=== PATIENT | male | born 1990 | race African-American/Black ===

== ENCOUNTER 2020-10-18 10:56 | Outpatient (CLI) | payer MEDICARE, MEDICAID, SELFPAY ==
--- NOTE | 2020-11-03 21:57 | WPDSLEEPSTUD ---
Sleep Study Date of Study: 10/18/20 Ordering Provider: Karen Acosta, SENIOR INSTRUCTIONAL DESIGNER Interpreting Physician: Awa Barrios MD Sleep Study Type: Split Polysomnogram Height: 1.85 m Weight: 114.759 kg Body Mass Index: 33.3 Neck Circumference (inches): 20 [place]: 11 Reason for Sleep Study Known obstructive sleep apnea, has tried CPAP in the past, now for re-testing Sleep History Dat Forde is a 29 year old man who resides in a retirement. He has hypertension, schizophrenia, obstructive sleep apnea on CPAP in the past, and because he has not wanted to use it, he has perhaps broken a CPAP machine. He has difficulty falling asleep and staying asleep. He wakes during the night. He has difficulty waking in the morning. He constantly wakes at night feeling short of breath. He rarely wakes at night with heartburn belching or coughing. He constantly snores loudly, always has trouble sleeping with a cold, and always gasps for breath at night, always sweats excessively at night. He frequently falls asleep in the day, frequently involuntarily, however does not drive therefore he does not fall asleep while driving. He does not have loss of muscle tone with strong emotion. He occasionally has daytime difficulties due to excessive sleepiness. He does not feel paralyzed on waking or falling asleep. He is not afraid to go to sleep. He does not have nightmares, does not recall his dreams, occasionally feels sad or depressed, and occasionally has anxiety. He does not have muscular tension, and does not notice parts of his body jerking. He does not have crawling or achy feelings in his legs at night, does not have leg pain at night, does not have morning jaw pain. He does not have pain in the day, does not wake up with pain in the night, does not wake up feeling stiff, with sore or achy muscles or with joint or spine pain. He takes Trazodone 100 mg at bedtime. Normal bedtime is between 10:00 p.m. and 11:00 p.m. waking up constantly throughout the night. While awake he will talk to himself, watch television and listen to music. Sometimes he stays awake throughout the night. He wakes the morning at 6:00 a.m., sometimes as early as 4:00 am. On the weekends, he may stay awake until 12:00 midnight or 1:00 a.m., and wake at 7:00 a.m. He may take a nap on julio weekend. A short nap is not refreshing. He is drowsy on waking. Habits: never smoker. Caffeine: one per day. No alcohol or recreational drugs. [facility] Past Medical History Medical History (Updated 11/06/20 @ 18:45 by Awa Barrios MD) Hypertension Non-alcoholic fatty liver disease Non-insulin dependent diabetes mellitus Obstructive sleep apnea Schizophrenia Surgical History Surgical History (Updated 11/03/20 @ 22:50 by Awa Barrios MD) History of ankle surgery Social History Social History (Updated 11/03/20 @ 22:51 by Awa Barrios MD) Smoking status: Never smoker Alcohol intake: never Substance use: never Living arrangements: retirement Additional living arrangements comments: Lives with 5 other residents, each has his own room. Medications Medications: aripiprazole 20 mg daily lamotrigine 200 mg b.i.d. fluticasone propionate 50 mcg per spray 2 sprays each nostril daily glipizide 10 mg before meal daily nystatin 100,000 units; apply twice a day to the affected area metformin 850 mg b.i.d. with meals loratadine 10 mg a day lisinopril 5 mg a day this a code 0 5 mg 2 capsules daily p.r.n. constipation ziprasidone 80 mg b.i.d. with food vitamin D2 1250 mcg every week diphenhydramine 25 mg Q 6 hours p.r.n. MiraLax 17 g daily with 8 oz of water p.r.n. constipation Sleep Procedure This test was performed using the [employer] multiple channel system including EOG, EEG, submental EMG, EKG, nasal and oral airflow using thermistors and nasal pressure sensors, chest and abdominal belts for body position data, and pulse oximetry. Video monitoring was also perfor
[2020-11-06 17:59] VITALS: BMI 33.3
== END 2020-10-19 06:43 | disposition home or self-care (01) ==
LOC: ANHCSM 10:59
PROVIDERS: Visit Provider Nurse Practitioner
DX: G47.30 Sleep apnea, unspecified (principal); G47.33 Obstructive sleep apnea (adult) (pediatric)
CPT/HCPCS: 95811

== ENCOUNTER 2021-04-19 20:47 | Day surgery (SDC) | payer MEDICARE, MEDICAID, SELFPAY ==
--- NOTE | ~2021-04-19 | XR_ITS ---
EXAMINATION: XR abdomen/kub 1V INDICATION: Ingested foreign body, swallowed two AAA batteries TECHNIQUE: Supine views of the abdomen were obtained on 2 radiographs. COMPARISON: None FINDINGS: There are two radiopaque foreign bodies projecting in the stomach with an appearance compat ible with ingested batteries. The bowel gas pattern is normal. The visualized lung bases are clear. A moderate volume of colonic stool is present. IMPRESSION: 1. Two radiopaque foreign bodies projecting in the stomach consistent with ingested batteries. Reviewed, dictated and finalized at location F. GER CARE IMPRESSION: 1. Two radiopaque foreign bodies projecting in the stomach consistent with magdi sted batteries.
--- NOTE | ~2021-04-19 | XR_ITS ---
EXAMINATION: XR abdomen/kub 1V DATE: 04/20/2021 06:54 INDICATION: Foreign body. TECHNIQUE: A supine view of the abdomen on 2 radiographs was obtained. COMPARISON: Abdomen radiographs 04/19/2021 FINDINGS: There are no dilated loops of bowel. There are 2 radiopaque foreign bodies in left abdomen in the shape of batteries measuring 55 x 13 mm. IMPRESSION: 1. Two radiopaque foreign bodies in left abdomen in the shape of batteries. One is likely in descendi ng colon. The other is likely in small bowel. Reviewed, dictated and finalized at location B. ECRAFT TEACHER IMPRESSION: 1. Two radiopaque foreign bodies in left abdomen in the shape of batteries. One is likely in descending colon. The other is likely in small bowel.
[2021-04-19 21:02] VITALS: BP 136/75; PULSE 88; RESP 18; TEMP 36.5; O2SAT 100
[2021-04-19 21:52] LABS: Basophils Percent Auto 0.2 % (0.2-1.2); Eosinophils Percent Auto 0.2 % (0-4.4); Hematocrit 41.9 % (42.0-52.0); Hemoglobin 13.9 g/dL (14.0-18.0); Immature Granulocyte Absolute 0.01 K/mm3 (0.00-0.031); Immature Granulocyte Percent A 0.2 % (0-0.5); Lymphocytes Absolute Auto 1.96 K/mm3 (0.9-3.2); Lymphocytes Percent Auto 34.5 % (18.3-44.2); Mean Corpuscular HGB Conc 33.2 g/dl (32-36); Mean Corpuscular Hemoglobin 31.4 pg (26-34); Mean Corpuscular Volume 94.8 fl (80-100); Mean Platelet Volume 9.9 fl (7.4-10.4); Monocytes Absolute Auto 0.5 K/mm3 (0.1-0.6); Monocytes Percent Auto 9.5 % (2.6-8.5); Neutrophils Absolute Auto 3.2 K/mm3 (1.3-6.7); Neutrophils Percent Auto 55.4 % (45.5-73.1); Platelet Count Result 259 k/mm3 (150-375); Red Blood Count 4.42 M/mm3 (4.6-6.20); Red Cell Distribution Width 12.4 % (11.5-14.5); White Blood Count 5.7 K/mm3 (4.5-10.0)
[2021-04-19 22:11] LABS: Ethanol < 10 mg/dL (<10)
[2021-04-19 22:12] LABS: Alanine Aminotransferase 29 U/L (4-50); Albumin Level 4.5 g/dL (3.5-5.1); Alkaline Phosphatase 73 U/L (38-126); Anion Gap 10 mmol/L (8-16); Aspartate Amino Transferase 35 U/L (17-59); Bilirubin,Total 0.5 mg/dL (0.2-1.3); Blood Urea Nitrogen 14 mg/dL (9-20); Calcium 9.8 mg/dL (8.4-10.2); Carbon Dioxide 28 mmol/L (22-30); Chloride 98 mmol/L (98-107); Estimated CRCL calculation 124 ml/min; Estimated Glomerular Filt Rate > 60; Glucose 101 mg/dL (65-110); Potassium 3.7 mmol/L (3.4-5.0); Sodium 136 mmol/L (137-145)
--- NOTE | 2021-04-19 22:21 | ED.PSYCH ---
HPI - Psych General Chief Complaint: Psychiatric Symptoms <Cristo Day MD - Last Filed: 04/20/21 01:41> Stated Complaint: ingestion <Cristo Day MD - Last Filed: 04/20/21 01:41> Time Seen by Provider: 04/19/21 21:42 <Cristo Day MD - Last Filed: 04/20/21 01:41> Source: patient <Cristo Day MD - Last Filed: 04/20/21 01:41> Mode of arrival: ambulatory <Cristo Day MD - Last Filed: 04/20/21 01:41> Limitations: no limitations <Cristo Day MD - Last Filed: 04/20/21 01:41> History of Present Illness HPI Narrative: 30-year-old with a history of schizophrenia, hypertension, diabetes here with the complaints of being upset at home. He states that he swallowed 2 AA batteries about 1 hour ago. He presently denies any nausea, vomiting or abdominal pain. Also feels suicidal. <Cristo Day MD - Last Filed: 04/20/21 01:41> MD complaint: suicidal ideation <Cristo Day MD - Last Filed: 04/20/21 01:41> Onset (ago): day(s) (1) <Cristo Day MD - Last Filed: 04/20/21 01:41> Duration: constant <Cristo Day MD - Last Filed: 04/20/21 01:41> Relieving factors: none <Cristo Day MD - Last Filed: 04/20/21 01:41> Exacerbating factors: none <Cristo Day MD - Last Filed: 04/20/21 01:41> Associated psychiatric symptoms: suicidal ideation <Cirsto Day MD - Last Filed: 04/20/21 01:41> Associated symptoms: denies other symptoms <Cristo Day MD - Last Filed: 04/20/21 01:41> Related Data Home Medications: Home Medications Medication Instructions Recorded Confirmed fluticasone propionate 50 1 spray INTRANASAL DAILY 01/16/21 04/20/21 mcg/actuation nasal spray,suspension lamotrigine 200 mg tablet 200 mg PO BID 01/16/21 04/20/21 lisinopril 5 mg tablet 5 mg PO DAILY 01/16/21 04/20/21 loratadine 10 mg capsule 10 mg PO DAILY 01/16/21 04/20/21 metformin 850 mg tablet 850 mg PO BID 01/16/21 04/20/21 nystatin 100,000 unit/gram topical 1 applic TOPICAL DAILY 01/16/21 04/20/21 cream trazodone 150 mg tablet 150 mg PO QHS PRN 01/16/21 04/20/21 aripiprazole 20 mg PO DAILY 04/20/21 04/20/21 <Cristo Day MD - Last Filed: 04/20/21 01:41> Allergies/Adverse Reactions: Allergies Allergy/AdvReac Type Severity Reaction Status Date / Time No Known Allergies Allergy Verified 04/19/21 23:16 <Cristo Day MD - Last Filed: 04/20/21 01:41> Review of Systems Review of Systems: All systems reviewed & are unremarkable except as noted in HPI and below <Cristo Day MD - Last Filed: 04/20/21 01:41> Constitutional: Constitutional: Reports no additional constitutional complaints <Cristo Day MD - Last Filed: 04/20/21 01:41> Eyes: Eyes: Reports no additional eye complaints <Cristo Day MD - Last Filed: 04/20/21 01:41> Cardiovascular: Cardiovascular: Reports no additional cardiovascular complaints <Cristo Day MD - Last Filed: 04/20/21 01:41> Respiratory: Respiratory: Reports no additional respiratory complaints <Cristo Day MD - Last Filed: 04/20/21 01:41> Gastrointestinal: Gastrointestinal: Reports as per HPI <Cristo Day MD - Last Filed: 04/20/21 01:41> Musculoskeletal: Musculoskeletal: Reports no additional musculoskeletal complaints <Cristo Day MD - Last Filed: 04/20/21 01:41> Integumentary/Breasts: Skin/Breast: Reports system reviewed and no additional complaints, except as docu <Cristo Day MD - Last Filed: 04/20/21 01:41> Neurologic: Reports system reviewed and no additional complaints, except as documented <Cristo Day MD - Last Filed: 04/20/21 01:41> [facility] Past Medical History Medical History: Medical History Diabetes mellitus Hypertension Non-alcoholic fatty liver disease Non-insulin dependent diabetes mellitus Obstructive sleep apnea Schizophrenia <Cristo Day MD - Last
--- NOTE | 2021-04-19 22:32 | WPDGICN ---
Assessment and Plan Assessment and plan (1) Foreign body in stomach: Qualifiers: Encounter type: initial encounter Qualified Code(s): T18.2XXA - Foreign body in stomach, initial encounter Code(s): T18.2XXA - Foreign body in stomach, initial encounter Status: Acute Assessment and Plan: He ingested 2 batteries. Denies chest or abdominal pain. The plan is to remove them via EGD with possible biopsy or dilatation or cautery. (2) Suicidal ideation: Code(s): R45.851 - Suicidal ideations Status: Acute Assessment and Plan: He states he swallowed batteries trying to harm himself, now regrets it. GI Consult Note Consult date/time: 04/19/21 22:32 HPI: Dat Forde is a 30 year old male who suffers from mental disability and schizophrenia, lives in a nursing home. This evening, he apparently swallowed 2 batteries. Xray confirms that batteries are in the stomach. Review of Systems Review of Systems: All systems reviewed & are unremarkable except as noted in HPI and below PMFSH Past Medical History Medical History Diabetes mellitus Hypertension Non-alcoholic fatty liver disease Non-insulin dependent diabetes mellitus Obstructive sleep apnea Schizophrenia Surgical History Surgical History History of ankle surgery Social History Social History Smoking status: Never smoker Alcohol intake: never Substance use: never Additional living arrangements comments: Lives with 5 other residents, each has his own room. Meds Home Medications and Allergies Home Medications Medication Instructions Recorded Confirmed Type acetaminophen 325 mg capsule 325 mg PO Q6H PRN 01/16/21 01/19/21 History aluminum-mag hydroxide-simethicone 30 ml PO ONCE ml 01/16/21 01/19/21 History 200 mg-200 mg-20 mg/5 mL oral susp bisacodyl 5 mg tablet,delayed 5 mg PO QHS 01/16/21 01/19/21 History release diphenhydramine HCl 25 mg capsule 25 mg PO QHS 01/16/21 01/19/21 History fluticasone propionate 50 1 spray INTRANASAL DAILY 01/16/21 01/19/21 History mcg/actuation nasal spray,suspension glipizide 10 mg tablet, extended 10 mg PO DAILY 01/16/21 01/19/21 History release 24 hr lamotrigine 200 mg tablet 200 mg PO BID 01/16/21 01/19/21 History lisinopril 5 mg tablet 5 mg PO DAILY 01/16/21 01/19/21 History loratadine 10 mg capsule 10 mg PO DAILY 01/16/21 01/19/21 History metformin 850 mg tablet 850 mg PO BID 01/16/21 01/19/21 History nystatin 100,000 unit/gram topical 1 applic TOPICAL DAILY 01/16/21 01/19/21 History cream ondansetron 4 mg disintegrating 4 mg PO Q8H 01/16/21 01/19/21 History tablet polyethylene glycol 3350 17 gram 17 g PO DAILY 01/16/21 01/19/21 History oral powder packet trazodone 150 mg tablet 150 mg PO QHS PRN 01/16/21 01/19/21 History ziprasidone HCl 80 mg capsule 80 mg PO BID 01/16/21 01/19/21 History vitamin E 200 unit capsule 800 unit PO DAILY 30 Days #120 cap 01/19/21 01/19/21 Rx Allergies Allergy/AdvReac Type Severity Reaction Status Date / Time No Known Allergies Allergy Verified 04/19/21 23:16 Vital Signs Vital Signs - 24 hr 04/19/21 21:02 Temperature 36.5 C Pulse Rate 88 Respiratory Rate 18 Blood Pressure 136/75 Pulse Oximetry 100 Exam Const: General: alert Orientation/consciousness: patient oriented x3 Resp: Auscultation: clear to auscultation bilaterally Cardio: Rhythm: regular rhythm GI: GI Palp: Yes Soft to palpation and No Tenderness to palpation present (GI) Neuro: General: patient oriented x3 Results Labs CBC & Chem 7: 04/19/21 21:41 04/19/21 21:41 Labs: Short CBC 04/19/21 Range/Units 21:41 WBC 5.7 (4.5-10.0) K/mm3 Hgb 13.9 L (14.0-18.0) g/dL Hct 41.9 L (42.0-52.0) % Plt Count 259 (150-375) k/
--- NOTE | 2021-04-19 23:07 | SUR.PHASEII ---
Pt is a word of the state, spoke with Josselin Pepper, Guardian/Librarian Helper of the pt, and obtained consent for the EGD. Susan CHAPMAN in ED confirmed.
--- NOTE | 2021-04-19 23:12 | PC.NURSE ---
Zandra RN given verbal report. RNs spoke with Josselin Pepper [facility] on-call to get consent for upper endoscopy with foreign body removal. Pt taken to GI lab
[2021-04-19 23:19] VITALS: BP 122/86; PULSE 75; RESP 18; O2SAT 100
[2021-04-19] MEDS: LACTATED RINGERS 1,000 ML 150 ML IV CONT (23:19)
--- NOTE | 2021-04-19 23:20 | WPDANESEPPF ---
Anes - Initial Pre Proc Eval Procedure: Operation Date: 04/19/21 22:50 Proposed Procedures p Esophagogastroduodenoscopy - Joel Hunter MD Date/Time: 04/19/21 23:20 Surgeon: Joel Hunter MD Pre Op Diagnosis: ingestion Patient Data Age: 30 Gender: M Height: 1.85 m Weight: 108 kg Last Vital Signs Temp 36.5 C 04/19/21 21:02 Pulse 88 04/19/21 21:02 Resp 18 04/19/21 21:02 BP 136/75 04/19/21 21:02 Pulse Ox 100 04/19/21 21:02 Allergies Allergy/AdvReac Type Severity Reaction Status Date / Time No Known Allergies Allergy Verified 04/19/21 23:16 Home Medications Medication Instructions Recorded Confirmed Type acetaminophen 325 mg capsule 325 mg PO Q6H PRN 01/16/21 01/19/21 History aluminum-mag hydroxide-simethicone 30 ml PO ONCE ml 01/16/21 01/19/21 History 200 mg-200 mg-20 mg/5 mL oral susp bisacodyl 5 mg tablet,delayed 5 mg PO QHS 01/16/21 01/19/21 History release diphenhydramine HCl 25 mg capsule 25 mg PO QHS 01/16/21 01/19/21 History fluticasone propionate 50 1 spray INTRANASAL DAILY 01/16/21 01/19/21 History mcg/actuation nasal spray,suspension glipizide 10 mg tablet, extended 10 mg PO DAILY 01/16/21 01/19/21 History release 24 hr lamotrigine 200 mg tablet 200 mg PO BID 01/16/21 01/19/21 History lisinopril 5 mg tablet 5 mg PO DAILY 01/16/21 01/19/21 History loratadine 10 mg capsule 10 mg PO DAILY 01/16/21 01/19/21 History metformin 850 mg tablet 850 mg PO BID 01/16/21 01/19/21 History nystatin 100,000 unit/gram topical 1 applic TOPICAL DAILY 01/16/21 01/19/21 History cream ondansetron 4 mg disintegrating 4 mg PO Q8H 01/16/21 01/19/21 History tablet polyethylene glycol 3350 17 gram 17 g PO DAILY 10/11/21 10/14/21 History oral powder packet trazodone 150 mg tablet 150 mg PO QHS PRN 01/16/21 01/19/21 History ziprasidone HCl 80 mg capsule 80 mg PO BID 01/16/21 01/19/21 History vitamin E 200 unit capsule 800 unit PO DAILY 30 Days #120 cap 01/19/21 01/19/21 Rx Laboratory Tests 04/19/21 04/19/21 04/19/21 21:41 21:41 21:41 WBC 5.7 K/mm3 K/mm3 (4.5-10.0) RBC 4.42 M/mm3 L M/mm3 (4.6-6.20) Hgb 13.9 g/dL L g/dL (14.0-18.0) Hct 41.9 % L % (42.0-52.0) MCV 94.8 fl fl (80-100) MCH 31.4 pg pg (26-34) MCHC 33.2 g/dl g/dl (32-36) RDW 12.4 % % (11.5-14.5) Plt Count 259 k/mm3 k/mm3 (150-375) MPV 9.9 fl fl (7.4-10.4) Immature Gran % (Auto) 0.2 % % (0-0.5) Neut % (Auto) 55.4 % % (45.5-73.1) Lymph % (Auto) 34.5 % % (18.3-44.2) [place] % (Auto) 9.5 % H % (2.6-8.5) Eos % (Auto) 0.2 % % (0-4.4) Baso % (Auto) 0.2 % % (0.2-1.2) Lymph # (Auto) 1.96 K/mm3 K/mm3 (0.9-3.2) [place] # (Auto) 0.5 K/mm3 K/mm3 (0.1-0.6) Eos # (Auto) 0.0 K/mm3 K/mm3 (0-0.3) Baso # (Auto) 0.0 K/mm3 K/mm3 (0.0-0.1) Abs Immat Gran (auto) 0.01 K/mm3 K/mm3 (0.00-0.031) Absolute Neuts (auto) 3.2 K/mm3 K/mm3 (1.3-6.7) Absolute Nucleated RBC 0.0 K/mm3 K/mm3 (0.0-0.012) Nucleated RBC % 0.0 % % (0.0-0.2) Sodium 136 mmol/L L mmol/L (137-145) Potassium 3.7 mmol/L mmol/L (3.4-5.0) Chloride 98 mmol/L mmol/L (98-107) Carbon Dioxide 28 mmol/L mmol/L (22-30) Anion Gap 10 mmol/L mmol/L (8-16) BUN 14 mg/dL mg/dL (9-20) Creatinine 1.00 mg/dL mg/dL (0.7-1.3) Estim Creat Clear Calc 124 ml/min ml/min Estimated GFR > 60 (59 - ) Glucose 101 mg/dL mg/dL (65-110) Calcium 9.8 mg/dL mg/dL (8.4-10.2) Total Bilirubin 0.5 mg/dL mg/dL (0.2-1.3) AST 35 U/L U/L (17-59) ALT 29 U/L U/L (4-50) Alkaline Phosphatase 73 U/L U/L (38-126) Total Protein 7.0 g/dL g/dL (6.3-8.2) A
[2021-04-19 23:30] VITALS: BP 113/81; PULSE 89; RESP 27; O2SAT 98
--- NOTE | 2021-04-19 23:33 | SUR.PHASEII ---
Pt being pre oped and post oped in endoscopy room 3.
[2021-04-19 23:40] VITALS: BP 97/61; PULSE 76; RESP 23; O2SAT 100
[2021-04-19 23:50] VITALS: BP 101/69; PULSE 79; RESP 20; O2SAT 98
[2021-04-19 23:53] LABS: Amphetamine Screen Urine Negative (Negative); Barbiturate Screen Urine Negative (Negative); Benzodiazepines Screen Urine Negative (Negative); Cannabinoid Screen Urine Negative (Negative); Cocaine Screen Urine Negative (Negative); Methadone Screen Urine Negative (Negative); Opiate Screen Urine Negative (Negative); Phencyclidine Screen Urine Negative (Negative)
--- NOTE | 2021-04-19 23:58 | PC.NURSE ---
Telephone report from Zandra CHAPMAN, GI unable to get objects out of ABD. will keep overnight for another attempt in the AM
--- NOTE | 2021-04-19 23:59 | SUR.PHASEII ---
Pt returning back to the ED.
[2021-04-20 02:50] LABS: Add Urine Microscopic? YES; Appearance Urine Clear (Clear); Bilirubin Urine Negative (Negative); Blood Urine Negative (Negative); Calcium Oxalate Crystals Urine Present /hpf; Color Urine Yellow (Yellow); Glucose Urine UA Negative (Negative); Ketones Urine Negative (Negative); Leukocyte Esterase Ur Negative LEU/UL (Negative); Mucus Urine Rare /lpf; Nitrate Urine Negative (Negative); Protein Urine Negative (Negative); Specific Grav Ur 1.024 (1.001-1.035); Squamous Epithelial Cell Urine Rare /hpf (Few); WBC Urine 0-3 /hpf
--- NOTE | 2021-04-20 07:24 | PC.NURSE ---
Assumed care of pt. at this time. Report from ADELA Davis
[2021-04-20 07:25] VITALS: BP 120/82; PULSE 82; RESP 14; TEMP 36.7; O2SAT 97
--- NOTE | 2021-04-20 07:45 | PC.NURSE ---
Report to GI spray painter. States she will be down to get pt. in approx. on hour.
--- NOTE | 2021-04-20 08:49 | PC.NURSE ---
Sury is pt. legal guardian m-f [phone]. Radha pt. nurse at [facility]f [phone]. Elsa, business area manager [phone]. Elsa states she would provide transportation for pt. reports she needs four hours notice.
[2021-04-20 09:01] LABS: Glucose Point of Care 75 mg/dl (65-105)
--- NOTE | 2021-04-20 11:00 | PC.NURSE ---
Crisis states pt. is safety contracted and safe to return home.
--- NOTE | 2021-04-20 11:43 | PC.NURSE ---
Per ERP pt. is to let batteries to pass naturally through stool.
--- NOTE | 2021-04-20 11:47 | PC.NURSE ---
Report to Radha from [facility] facility. Pt. is to continue normal diet and stools are supposed to be monitored until batteries are passed. facility has also been instructed the follow up w/ Dr. Hunter in the next few days.
--- NOTE | 2021-04-20 11:48 | PC.NURSE ---
Radha states she will contact Elsa for pt. transportation and will call RN back with information. [facility] will not have staff until after 1400.
[2021-04-20 11:51] VITALS: BP 135/75; PULSE 82; RESP 16; O2SAT 100
[2021-04-20 11:53] LABS: Glucose Point of Care 127 mg/dl (65-105)
--- NOTE | 2021-04-20 12:10 | PC.NURSE ---
ADELA Garcia called this RN to update pt. states they have appointments later today and states they will work to pick him up eventually.
[2021-04-20 16:20] VITALS: BP 133/88; PULSE 80; RESP 19; O2SAT 99
== END 2021-04-19 22:44 ==
LOC: ANHED 22:06 → ANHENDO 22:48
PROVIDERS: Emergency Medicine; Emergency Provider Emergency Medicine; PCP Family Medicine; Visit Provider Internal Medicine Gastroenterology
PROC: 0DJ08ZZ Inspection of Upper Intestinal Tract, Via Natural or Artificial Opening Endoscopic (ICD-10-PCS; CPT 43235; principal; 2021-04-19 22:50)
DX: T18.2XXA Foreign body in stomach, initial encounter (principal); R45.851 Suicidal ideations; K31.84 Gastroparesis; F20.9 Schizophrenia, unspecified; I10 Essential (primary) hypertension; E11.9 Type 2 diabetes mellitus without complications; Z79.84 Long term (current) use of oral hypoglycemic drugs; K76.0 Fatty (change of) liver, not elsewhere classified; G47.30 Sleep apnea, unspecified; E66.9 Obesity, unspecified; Z68.31 Body mass index [BMI] 31.0-31.9, adult; Z79.899 Other long term (current) drug therapy
CPT/HCPCS: 43235; 36415; 74018; 80053; 80307; 81001; 82948; 84443; 85025; 99285; J2001; J2704; J7120

== ENCOUNTER 2021-04-25 15:31 | Outpatient (CLI) | payer MEDICARE, MEDICAID, SELFPAY ==
--- NOTE | ~2021-04-25 | XR_ITS ---
EXAMINATION: XR abdomen/kub 1V DATE: 04/25/2021 15:50 INDICATION: Foreign body. TECHNIQUE: A supine view of the abdomen on 2 radiographs was obtained. COMPARISON: Abdomen radiographs 04/20/2021, 04/19/2021 FINDINGS: There are no dilated loops of bowel. There are two battery-shaped foreign bodies overlying the sigmoid colon. IMPRESSION: 1. Two battery-shaped foreign bodies overlying the sigmoid colon. Reviewed, dictated and finalized at location A. WORK FEEDER
== END 2021-04-25 15:32 | disposition home or self-care (01) ==
PROVIDERS: PCP Family Medicine; Visit Provider Internal Medicine Gastroenterology
DX: T18.2XXA Foreign body in stomach, initial encounter (principal)
CPT/HCPCS: 74018

== ENCOUNTER 2021-04-28 02:21 | Day surgery (SDC) | payer MEDICARE, MEDICAID, SELFPAY ==
[2021-04-26 15:09] VITALS: BMI 34.0
--- NOTE | 2021-04-27 14:07 | WPDANESEPPF ---
Anes - Initial Pre Proc Eval Procedure: Operation Date: 04/28/21 10:00 Proposed Procedures p Colonoscopy - Audi Shaffer MD Date/Time: 04/27/21 14:07 Surgeon: Audi Shaffer MD Pre Op Diagnosis: removal of foreign body Patient Data Age: 30 Gender: M Height: 1.85 m Weight: 117 kg Allergies Allergy/AdvReac Type Severity Reaction Status Date / Time No Known Allergies Allergy Verified 04/28/21 09:21 Home Medications Medication Instructions Recorded Confirmed Type fluticasone propionate 50 1 spray INTRANASAL DAILY 01/16/21 04/28/21 History mcg/actuation nasal spray,suspension lamotrigine 200 mg tablet 200 mg PO BID 01/16/21 04/28/21 History lisinopril 5 mg tablet 5 mg PO DAILY 01/16/21 04/28/21 History loratadine 10 mg capsule 10 mg PO DAILY 01/16/21 04/28/21 History metformin 850 mg tablet 850 mg PO BID 01/16/21 04/28/21 History nystatin 100,000 unit/gram topical 1 applic TOPICAL DAILY 01/16/21 04/28/21 History cream trazodone 150 mg tablet 150 mg PO QHS PRN 01/16/21 04/28/21 History vitamin E 200 unit capsule 800 unit PO DAILY 30 Days #120 cap 01/19/21 04/28/21 Rx aripiprazole 20 mg PO DAILY 04/20/21 04/28/21 History Patient hx anesthesia problems: none Family hx anesthesia problems: none Results Review: All pre-operative results and documents have been reviewed as part of the pre-operative evaluation. [facility] Past Medical History Medical History Diabetes mellitus Hypertension Non-alcoholic fatty liver disease Non-insulin dependent diabetes mellitus Obstructive sleep apnea Schizophrenia Surgical History Surgical History History of ankle surgery Social History Social History Smoking status: Never smoker Alcohol intake: never Substance use: never Substance use type: does not use Living arrangements: assisted living Additional living arrangements comments: Lives with 5 other residents, each has his own room. Spiritual care concerns: No Anes - Eval Final PreProcedure Day of Procedure 04/27/21 14:07 Patient weight: obese Heart: regular rate and rhythm Lungs: clear to auscultation and normal air movement Airway: Mallampati scale class II Neurological: alert and oriented Last oral intake: >/= 8 hours ASA classification: III Emergent: no Anesthetic plan: proceed Anesthesia type and monitoring: general GIVS and standard monitoring Results Review: All pre-operative results and documents have been reviewed as part of the pre-operative evaluation. Informed Consent: The patient's anesthetic plan and its attendant risks and benefits were discussed with the patient/family/POA. Questions were solicited and answers provided to the satisfaction of the patient/family/POA.
--- NOTE | ~2021-04-28 | XR_ITS ---
XR abdomen/kub 1V DATE: 04/28/2021 11:03 INDICATION: Ingestion of batteries TECHNIQUE: 3 AP supine views COMPARISON: 04/25/2021, 04/20/2021, 04/19/2021 KUB examinations FINDINGS: There are 2 radiopaque foreign bodies consistent with recently or early ingested batteries are no longer evident, having been passed per rectum presumably. No bowel obstruction. No visceromegaly. No abnormal calcification. IMPRESSION: Interval passage of 2 batteries since 04/25/2021; the periventricular no longer identified Reviewed, dictated and finalized at Location A. Reviewed, dictated and finalized at location A. UITER ACCOUNT MANAGER IMPRESSION: Interval passage of 2 batteries since 04/25/2021; the periventricula r no longer identified
--- NOTE | 2021-04-28 07:17 | SUR.PREOP ---
Elsa the maintenance worker house trailer called and stated that the staff at the assisted living watched him drink all of his prep and Dat has not had a bowel movement. I spoke with Dr Fink and states no new orders and okay for the patient to still come in for the procedure.
[2021-04-28 09:24] VITALS: BP 134/76; PULSE 82; RESP 20; TEMP 36.3; O2SAT 100; BMI 33.7
[2021-04-28] MEDS: LACTATED RINGERS 1,000 ML 150 ML IV CONT (09:28)
[2021-04-28 09:43] LABS: Glucose Point of Care 70 mg/dl (65-105)
--- NOTE | 2021-04-28 09:54 | WPDHPUPDATE1 ---
History and Physical Update Update Date/Time: 04/28/21 09:54 History and Physical has been reviewed, including an updated exam of the patient. There are NO changes in the patient's condition. Risks, benefits, and alternatives have been discussed and questions answered. Patient agrees to proceed with procedure.
[2021-04-28 10:34] VITALS: BP 93/54; PULSE 72; RESP 15; O2SAT 97
[2021-04-28 10:44] VITALS: BP 100/63; PULSE 63; RESP 15; O2SAT 99
[2021-04-28 10:54] VITALS: BP 113/77; PULSE 61; RESP 18; O2SAT 99
--- NOTE | 2021-04-28 10:58 | SUR.PHASEII ---
Pt transferred to [facility] at 1056.
--- NOTE | 2021-04-28 11:18 | SUR.PHASEII ---
Patient cleared for discharge per Dr Peace. No further instruction given.
== END 2021-04-28 11:15 | disposition home or self-care (01) ==
PROVIDERS: PCP Family Medicine; Visit Provider Internal Medicine Gastroenterology
PROC: 0DJD8ZZ Inspection of Lower Intestinal Tract, Via Natural or Artificial Opening Endoscopic (ICD-10-PCS; CPT 45378; principal; 2021-04-28 10:00)
DX: T18.4XXA Foreign body in colon, initial encounter (principal); F20.9 Schizophrenia, unspecified; R45.851 Suicidal ideations; I10 Essential (primary) hypertension; E11.9 Type 2 diabetes mellitus without complications; K75.81 Nonalcoholic steatohepatitis (NASH); G47.33 Obstructive sleep apnea (adult) (pediatric); Z79.84 Long term (current) use of oral hypoglycemic drugs; E66.9 Obesity, unspecified; Z68.33 Body mass index [BMI] 33.0-33.9, adult
CPT/HCPCS: 45378; 74018; 82948; J2704; J7120

== ENCOUNTER 2023-03-08 17:15 | Outpatient (CLI) | payer MEDICARE, MEDICAID, SELFPAY ==
--- NOTE | ~2023-03-08 | XR_ITS ---
EXAMINATION: XR knee LT 3V DATE: 03/08/2023 17:45 INDICATION: Left knee pain TECHNIQUE: Weightbearing AP, lateral and sunrise views of the left knee were obtained COMPARISON: None. FINDINGS: Alignment is normal. No fracture. Mild tricompartmental osteoarthritis at the left knee with mild nitza int space during the medial compartment and small marginal osteophytes in the lateral and patellofemo ral compartments. No left knee joint effusion. Mild prepatellar soft tissue swelling. IMPRESSION: 1. Mild tricompartmental osteoarthritis at the left knee. No joint effusion or acute osseous abnormal ity. Reviewed, dictated and finalized at location A. [employer]ULT[employer] IMPRESSION: 1. Mild tricompartmental osteoarthritis at the left knee. No joint effusion or acute osseous abnormality.
== END 2023-03-08 17:16 | disposition home or self-care (01) ==
PROVIDERS: Visit Provider Nurse Practitioner Family
DX: M17.12 Unilateral primary osteoarthritis, left knee (principal)
CPT/HCPCS: 73562